=== PATIENT | female | born 1955 | race Caucasian/White ===

== ENCOUNTER 2016-11-30 12:31 | Emergency (ER) | payer OTHER ==
[2016-11-30 12:47] VITALS: BP 151/73; PULSE 77; RESP 18; TEMP 97.4; O2SAT 99
--- NOTE | 2016-11-30 12:55 | ED PDOC ---
Upper Extremity Pain/Injury Time Seen by Provider: 11/30/16 12:48 Chief Complaint (Nursing): Upper Extremity Problem/Injury Chief Complaint (Provider): arm pain, fall History Per: Patient Additional Complaint(s): [id number] female presents with pain to right shoulder and upper arm status post trip and fall this morning. Patient tripped on uneven pavement while walking her dog. She denies head injury or loss of consciousness. Patient took 2 Aleve earlier which helped only minimally with shoulder pain. She is unable to raise her arm without severe discomfort. No associated chest pain, shortness of breath or dyspnea on exertion. No dizziness or syncope prior to fall. Patient has been able to walk since time of fall and denies any lower extremity injury or any other injury aside from right arm injury. Past Medical History Reviewed: Historical Data, Nursing Documentation, Vital Signs Vital Signs: Last Vital Signs Temp 97.4 F L 11/30/16 12:43 Pulse 77 11/30/16 12:43 Resp 18 11/30/16 12:43 BP 151/73 H 11/30/16 12:43 Pulse Ox 99 11/30/16 12:43 - Medical History PMH: Arthritis, Osteoporosis - Surgical History Surgical History: (x 1) - Family History Family History: States: No Known Family Hx - Living Arrangements Living Arrangements: With Family - Social History Current smoker - smoking cessation education provided: No Alcohol: None Drugs: Cannabis - Home Medications Home Medications: Ambulatory Orders Medication Instructions Recorded Ibuprofen [Motrin Tab] 800 mg PO Q8 PRN #20 tab 11/30/16 - Allergies Allergies/Adverse Reactions: Allergies Allergy/AdvReac Type Severity Reaction Status Date / Time No Known Allergies Allergy Verified 06/14/14 14:08 Review of Systems ROS Statement: Except As Marked, All Systems Reviewed And Found Negative Musculoskeletal: Positive for: Other (right upper arm injury s/p accidental fall ) Neurological: Positive for: Other (denies head injury or LOC as result of fall) Physical Exam - Reviewed Nursing Documentation Reviewed: Yes Vital Signs Reviewed: Yes - Physical Exam Appears: Positive for: Well, Non-toxic, No Acute Distress Skin: Negative for: Rash Eye Exam: Positive for: Normal appearance, EOMI, PERRL Neck: Positive for: Painless ROM. 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 Patient was given rx motrin and referral to ortho rn admissions for follow up. Disposition - Clinical Impression Clinical Impression: Shoulder sprain, Accidental fall - Patient ED Disposition Is Patient to be Admitted: No Counseled Patient/Family Regarding: Studies Performed, Diagnosis, Need For Followup, Rx Given - Disposition Referrals: Jimmy Moffett MD [Staff Provider] - Disposition: Routine/Home Disposition Time: 13:49 Condition: STABLE Additional Instructions: Ice and rest affected area. Take rx meds as directed as needed for pain. Follow up with primary care doctor or with orthopedist for any persistent symptoms. Prescriptions: Ibuprofen [Motrin Tab] 800 mg PO Q8 PRN #20 tab PRN Reason: Pain, Moderate (4-7) Instructions: Shoulder Sprain (ED)
--- NOTE | 2016-11-30 14:07 | RAD ---
PROCEDURE: Radiographs of the Right Shoulder HISTORY: trauma COMPARISON: None available. FINDINGS: BONES: No acute displaced fracture. The distal clavicle and underlying ribs appear intact. Osseous demineralization. Degenerative changes of the included portions thoracic spine. JOINTS: No acute dislocation. Acromioclavicular arthropathy. Glenohumeral joint space narrowing. SOFT TISSUES: Soft tissues appear unremarkable. No evidence of radiopaque foreign body. IMPRESSION: Osseous demineralization. Degenerative changes. No acute displaced fracture or dislocation evident. If symptoms persist or if there is continued clinical concern, x-ray follow-up in 7-10 days should be considered.
--- NOTE | 2016-11-30 14:08 | RAD ---
PROCEDURE: Radiographs of the right humerus. HISTORY: trauma COMPARISON: None available. FINDINGS: BONES: Osseous demineralization. No acute displaced fracture or dislocation. SOFT TISSUES: Unremarkable. No evidence of radiopaque foreign body. OTHER FINDINGS: None. IMPRESSION: No acute displaced fracture, dislocation, or significant joint effusion identified. If symptoms persist, or if there is continued clinical concern, x-ray follow-up in 7-10 days should be considered.
== END 2016-11-30 14:05 | disposition home or self-care (01) ==
LOC: H.ER 12:31
DX: S43.401A Unspecified sprain of right shoulder joint, initial encounter (principal); M81.0 Age-related osteoporosis without current pathological fracture; W01.0XXA Fall on same level from slipping, tripping and stumbling without subsequent striking against object, initial encounter; Y93.K1 Activity, walking an animal; Y92.9 Unspecified place or not applicable